=== PATIENT | female | born 1975 | race African-American/Black ===

== ENCOUNTER 2019-03-05 08:46 | Emergency (ER) | payer OTHER ==
[~2019-03-05] VITALS: Ht 193 cm; Wt 138.0 kg
[2019-03-05] MEDS ORDERED: IBUPROFEN 600MG TABLET PO ONE (10:00)
[2019-03-05 11:22] VITALS: BP 128/80
== END 2019-03-05 11:24 | disposition home or self-care (01) ==
LOC: ER 08:46
DX: S92.912A Unspecified fracture of left toe(s), initial encounter for closed fracture (principal); F12.10 Cannabis abuse, uncomplicated; F17.200 Nicotine dependence, unspecified, uncomplicated; W18.30XA Fall on same level, unspecified, initial encounter; Y92.89 Other specified places as the place of occurrence of the external cause; Y93.89 Activity, other specified; Y99.8 Other external cause status
CPT/HCPCS: 29515; 73560; 73590; 73600; 73620; 99283; Z7610